=== PATIENT | female | born 1965 | race Caucasian/White ===

== ENCOUNTER 2016-04-13 14:25 | Inpatient (IN) | payer OTHER ==
[~2016-04-13] VITALS: Ht 162.6 cm; Wt 69.6 kg
[2016-04-13] MEDS ORDERED: NEB-XOPENEX 1.25 MG/3 ML INH ONE ×3 (14:41→15:14)
[2016-04-13 18:55] VITALS: BP_SYST 130; TEMP 98.5
[2016-04-13 18:56] VITALS: BP_SYST 128; RESP 28
[2016-04-13] MEDS ORDERED: DUONEB INH ONE (19:06)
[2016-04-13 19:09] VITALS: Ht 162.6 cm; Wt 69.6 kg
[2016-04-13 19:10] VITALS: RESP 20
[2016-04-13 20:05] VITALS: BP_SYST 144; RESP 24; TEMP 97.2
[2016-04-13] MEDS ORDERED: ONDANSETRON 4 MG VIAL IV PRN (20:35)
[2016-04-13] MEDS ORDERED: ACETAMINOPHEN 325 MG TAB PO PRN (20:35)
[2016-04-13] MEDS ORDERED: BISACODYL EC 5 MG TAB PO PRN (20:35)
[2016-04-13] MEDS ORDERED: SALINE FLUSH 10 ML FLUSH PRN (20:35)
[2016-04-13] MEDS ORDERED: ALU/MAG/SIM 30 ML UDC PO PRN (20:35)
[2016-04-13] MEDS ORDERED: MAG HYDROX 30 ML UDC PO PRN (20:35)
[2016-04-13] MEDS ORDERED: BISACODYL 10 MG SUPP RECTAL PRN (20:35)
[2016-04-13] MEDS: LEVOFLOXACIN 750 MG/150 ML 150 ML IV SCH (21:46)
[2016-04-13] MEDS: ZOLPIDEM 5 MG TAB PO PRN (21:47)
[2016-04-13] MEDS ORDERED: ALPRAZOLAM 0.25 MG TAB PO PRN (22:05)
[2016-04-13] MEDS ORDERED: ZOLPIDEM 5 MG TAB PO SCH (22:05)
[2016-04-13] MEDS ORDERED: FLUTICASONE IH SCH (22:05)
[2016-04-13] MEDS ORDERED: SALMETEROL IH SCH (22:05)
[2016-04-13] MEDS: DUONEB INH SCH (22:46)
[2016-04-13] MEDS ORDERED: DUONEB INH SCH (23:00)
[2016-04-13 23:44] VITALS: BP_SYST 129; RESP 22; TEMP 97.3
[2016-04-14] VITALS (9 sets, daily range): BP systolic 106–128; RESP 20–24; TEMP 97.8–98.7
[2016-04-14] MEDS: MONTELUKAST 10 MG TAB PO SCH ×2 (00:01→19:37)
[2016-04-14] MEDS: METHYLPRED SOD SUCC 125 MG/2 ML VIAL IV SCH ×2 (00:02→08:14)
[2016-04-14] MEDS: DUONEB INH SCH ×6 (02:43→23:14)
[2016-04-14] MEDS: NEB-BUDESONIDE 0.5 MG INH SCH ×2 (06:31→17:02)
[2016-04-14] MEDS: NEB-BROVANA 15 MCG/2 ML INH SCH ×2 (06:31→17:02)
[2016-04-14] MEDS: SODIUM CHLORIDE 0.9% FLUSH BAG 500 ML IV SCH (06:37)
[2016-04-14] MEDS ORDERED: MDI-SPIRIVA 5 DOSES INH SCH (07:00)
[2016-04-14] MEDS: SERTRALINE 100 MG TAB PO SCH (08:14)
[2016-04-14] MEDS: SALINE FLUSH 10 ML FLUSH SCH ×2 (08:14→19:37)
[2016-04-14] MEDS: LEVOFLOXACIN 750 MG/150 ML 150 ML IV SCH (08:14)
[2016-04-14] MEDS: CETIRIZINE 10 MG TAB PO SCH (08:14)
[2016-04-14] MEDS: MELOXICAM 7.5 MG TAB PO SCH (12:50)
[2016-04-14] MEDS: GUAIFENESIN ER 600 MG TABCR PO SCH ×2 (12:50→19:37)
[2016-04-14] MEDS: ALPRAZOLAM 0.25 MG TAB PO SCH ×3 (12:51→19:38)
[2016-04-14] MEDS ORDERED: MISSING DOSE XX ONE (12:55)
[2016-04-14] MEDS: PANTOPRAZOLE 40 MG TAB PO SCH (14:16)
[2016-04-14] MEDS: PREDNISONE 20 MG TAB PO SCH ×2 (16:11→23:05)
[2016-04-14] MEDS: ZOLPIDEM 5 MG TAB PO PRN (19:38)
[2016-04-14] MEDS ORDERED: PANTOPRAZOLE 40 MG TAB PO SCH (21:00)
[2016-04-15] MEDS: DUONEB INH SCH ×4 (02:40→14:27)
[2016-04-15 02:41] VITALS: BP_SYST 115; RESP 20; TEMP 98.5
[2016-04-15] MEDS: PANTOPRAZOLE 40 MG TAB PO SCH (04:55)
[2016-04-15] MEDS: SODIUM CHLORIDE 0.9% FLUSH BAG 500 ML IV SCH (04:56)
[2016-04-15] MEDS ORDERED: MDI-SPIRIVA 5 DOSES INH SCH (07:00)
[2016-04-15 07:07] VITALS: BP_SYST 110; RESP 16; TEMP 97.6
[2016-04-15] MEDS: NEB-BROVANA 15 MCG/2 ML INH SCH (07:35)
[2016-04-15] MEDS: NEB-BUDESONIDE 0.5 MG INH SCH (07:35)
[2016-04-15] MEDS: SALINE FLUSH 10 ML FLUSH SCH (07:57)
[2016-04-15] MEDS: PREDNISONE 20 MG TAB PO SCH ×2 (07:58→15:11)
[2016-04-15] MEDS: MELOXICAM 7.5 MG TAB PO SCH (07:58)
[2016-04-15] MEDS: CETIRIZINE 10 MG TAB PO SCH (07:58)
[2016-04-15] MEDS: SERTRALINE 100 MG TAB PO SCH (07:58)
[2016-04-15] MEDS: GUAIFENESIN ER 600 MG TABCR PO SCH (07:58)
[2016-04-15] MEDS: LEVOFLOXACIN 750 MG/150 ML 150 ML IV SCH (07:59)
[2016-04-15] MEDS: ALPRAZOLAM 0.25 MG TAB PO SCH ×2 (08:02→12:56)
[2016-04-15] MEDS ORDERED: PHARMACY TO DOSE VANCOMYCIN IV SCH (11:20)
[2016-04-15 11:37] VITALS: BP_SYST 140; RESP 20; TEMP 97.7
[2016-04-15] MEDS ORDERED: VANCOMYCIN 1,000 MG in SODIUM CHLORIDE 0.9% 250 ML IV SCH (12:00)
[2016-04-15 15:37] VITALS: BP_SYST 122; RESP 20; TEMP 97.6
[2016-04-15 15:53] VITALS: BP_SYST 122; RESP 20; TEMP 97.6
== END 2016-04-15 16:21 | disposition home or self-care (01) | DRG 189 ==
LOC: ENRESERVDT → ENRESERVTM → ER 14:25 → EMR 17:54 → ENPENDDIS 17:54 → PCU2 18:47 → 4NT 04-14 17:19
PROVIDERS: ADMIT Internal Medicine; ATTEND Internal Medicine
CPT/HCPCS: 36600; 71010; 71250; 78582; 80053; 85025; 87077; 87186; 93005; 94640; 94799; 99222; 99223; 99231; 99232; 99239